=== PATIENT | female | born 1990 | race Caucasian/White ===

== ENCOUNTER 2021-01-22 12:31 | Emergency (ER) | payer OTHER, MEDICAID, SELFPAY ==
[2021-01-22 12:35] VITALS: BP 133/72; PULSE 82; RESP 20; TEMP 37; O2SAT 99
--- NOTE | 2021-01-22 12:35 | ED.HA ---
HPI - Headache General Chief Complaint: Headache Stated Complaint: migraine for 5 days Time Seen by Provider: 01/22/21 12:36 Source: patient and RN notes reviewed History of Present Illness HPI Narrative: Patient is a 31-year-old female who presents the urgent care with complaints of a 5-day history of a headache. Patient does have history of migraines and these are typical symptoms of her migraines however stating that this is lasting much longer than normal. Patient states that the pain is behind the eyes at wrapping to the back of the head. Patient states she has some photophobia as well as nausea and vomiting. Patient has tried her prescription Imitrex, Excedrin, ibuprofen with minimal intermittent relief. No other acute complaints. Denies of any recent head trauma. Denies of confusion or blurry vision. No acute distress noted. Patient aware of the plan of care. Some parts of this dictation were generated by voice recognition software and may contain typographical and/or grammatical inaccuracies. Related Data Home Medications Medication Instructions Recorded Confirmed sumatriptan succinate 100 mg PO DAILY PRN 01/22/21 01/22/21 Allergies Allergy/AdvReac Type Severity Reaction Status Date / Time No Known Allergies Allergy Unknown Verified 01/22/21 12:46 Review of Systems Review of Systems: Narrative: CONSTITUTIONAL: Denies fever, chills, or sweats. EYES: Denies visual changes, redness, or discharge. Reports of photophobia and sensitivity to light ENT: Denies rhinorrhea, congestion, sore throat, or otalgia. CARDIOVASCULAR: Denies chest pain, palpitations, or edema. RESPIRATORY: Denies cough or dyspnea. GASTROINTESTINAL: Denies abdominal pain, nausea, vomiting, or diarrhea. GENITOURINARY: Denies dysuria or hematuria. SKIN: Denies rash or itching. MUSCULOSKELETAL: Denies back pain, joint pain, or myalgia. NEUROLOGIC: Reports of migraine behind the eyes All other systems reviewed are negative, except as documented in HPI. PMFSH Comments At the time of my signature, I reviewed and agree with the nursing past medical, surgical, social, and family history. There is no relevant family history pertinent to the patient complaint. Exam Narrative: Exam Narrative: GENERAL: This is a well-nourished, well-developed patient, in no apparent distress. HEAD: normocephalic, atraumatic. EYES: PERRL. Sclera clear/white. Vision is grossly intact. EARS: External ears normal NOSE: External nose normal with no obvious nasal discharge, nares without redness, no rhinorrhea. THROAT: Mucous membranes moist NECK: Neck supple, non-tender without lymphadenopathy CARDIOVASCULAR: Regular rate and rhythm without murmurs, gallops, or rubs. RESPIRATORY: Clear to auscultation. Breath sounds equal bilaterally. No wheezes, rales, or rhonchi. SKIN: warm, intact with no suspicious lesions or rash, good texture and turgor. NEURO: awake, alert, and oriented to person, place and time. There were no obvious focal neurologic abnormalities. EXTREMITIES: No clubbing, cyanosis, or edema. Course Vital Signs Vital signs: Vital Signs Temperature 98.6 F 01/22/21 12:35 Pulse Rate 82 01/22/21 12:35 Respiratory Rate 20 01/22/21 12:35 Blood Pressure 133/72 01/22/21 12:35 Pulse Oximetry 99 01/22/21 12:35 Temperature 98.6 F 01/22/21 12:35 Pulse Rate 82 01/22/21 12:35 Respiratory Rate 20 01/22/21 12:35 Blood Pressure 133/72 01/22/21 12:35 Pulse Oximetry 99 01/22/21 12:35 Reviewed MDM - Headache MDM Narrative Medical decision making narrative: Advised the patient to use the Fioricet as needed. Make sure to follow directions stated on the prescription bottle. You may not take Fioricet in conjunction with other doses of Excedrin or Tylenol. Fioricet should also not be taken in conjunction with the Imitrex. Increase your water intake. Avoid any strenuous activities. Use Zofran as needed for nausea. If you develop any increa
[2021-01-22] MEDS: KETOROLAC (*BKC) 60 MG/2 ML VIAL IM (13:00)
[2021-01-22] MEDS: ONDANSETRON HCL ODT 4 MG TABLET PO (13:01)
[2021-01-22] MEDS: diphenhydrAMINE HCl CAP 25 MG CAPSULE PO (13:01)
== END 2021-01-22 13:30 | disposition home or self-care (01) ==
PROVIDERS: Emergency Provider Nurse Practitioner Family
DX: G43.909 Migraine, unspecified, not intractable, without status migrainosus (principal)
CPT/HCPCS: 96372; 99203; A9270; G0463; J1885

== ENCOUNTER 2021-05-23 08:10 | Emergency (ER) | payer OTHER, MEDICAID, SELFPAY ==
[2021-05-23 08:23] VITALS: BP 123/64; PULSE 75; RESP 16; TEMP 36.6; O2SAT 100
--- NOTE | 2021-05-23 08:40 | ED.SKABFB ---
HPI - Skin/Abscess/Foreign Bdy General Chief complaint: Skin/Abscess/Foreign Body Stated complaint: palms of hands and bottom feet itching Source: patient Mode of arrival: ambulatory Limitations: no limitations History of Present Illness HPI narrative: Patient is a 31-year-old female who presents complaining of pruritus to bilateral hands and feet. She denies use of new detergents, chemicals, soaps or lotions. She denies exposure to plant allergens. She reports signs and symptoms x4 days. She reports taking Benadryl overnight with limited relief. She reports using calamine lotion daily. She denies fever, cough, congestion and all other complaints at this time. Patient has no significant medical history. MD complaint: rash Related Data Allergies Allergy/AdvReac Type Severity Reaction Status Date / Time No Known Allergies Allergy Unknown Verified 05/23/21 08:29 Review of Systems Review of Systems: CONSTITUTIONAL: Denies fever, chills, or sweats. EYES: Denies visual changes, redness, or discharge. ENT: Denies rhinorrhea, congestion, sore throat, or otalgia. CARDIOVASCULAR: Denies chest pain, palpitations, or edema. RESPIRATORY: Denies cough or dyspnea. GASTROINTESTINAL: Denies abdominal pain, nausea, vomiting, or diarrhea. GENITOURINARY: Denies dysuria or hematuria. SKIN: Pruritus to bilateral hands and feet MUSCULOSKELETAL: Denies back pain, joint pain, or myalgia. NEUROLOGIC: Denies headache, numbness, dizziness, or weakness. PSYCHIATRIC: Denies anxiety or depression. PMFSH Past Medical History Medical History (Updated 05/23/21 @ 08:47 by ANTOINE Richardson) No significant past medical history Surgical History Surgical History (Updated 05/23/21 @ 08:42 by ANTOINE Richardson) No significant past surgical history Family History Family History (Updated 05/23/21 @ 08:42 by ANTOINE Richardson) Other No significant family history Social History Social History (Updated 05/23/21 @ 08:43 by ANTOINE Richardson) Smoking status: Current every day smoker Tobacco type: e-cigarettes/vaping Alcohol intake: current Alcohol use details: Occasional Substance use: never Living arrangements: with family Occupation/Education: occupation Exam Narrative: GENERAL: Well-appearing, well-nourished, and in no acute distress. HEAD: Normocephalic, atraumatic. EYES: EOMI. No redness or drainage. Conjunctiva are normal. ENT: Mucous membranes pink and moist. CHEST: No respiratory distress. HEART: Regular rate and rhythm. EXTREMITIES: Normal range of motion. No edema. SKIN: Warm, dry, no rash. Mild erythema without lesions of bilateral hands and feet, most likely from patient scratching. NEURO: No focal deficits. Alert and oriented x3. Gait steady. PSYCH: Normal affect. No signs of depression or anxiety. Course Vital Signs Vital signs: Vital Signs Temperature 36.6 C 05/23/21 08:23 Pulse Rate 75 05/23/21 08:23 Respiratory Rate 16 05/23/21 08:23 Blood Pressure 123/64 05/23/21 08:23 Pulse Oximetry 100 05/23/21 08:23 Temperature 36.6 C 05/23/21 08:23 Pulse Rate 75 05/23/21 08:23 Respiratory Rate 16 05/23/21 08:23 Blood Pressure 123/64 05/23/21 08:23 Pulse Oximetry 100 05/23/21 08:23 Reviewed MDM - Skin/Abscess/Foreign Bdy MDM Narrative Medical decision making narrative: Discussed with patient most likely contact dermatitis. Discussed using hydrocortisone cream and taking Atarax. Patient is aware of need to follow-up. Patient stable for discharge home with outpatient follow-up as discussed. Differential Diagnosis Differential diagnosis: Likely viral exanthem, urticaria, cellulitis, eczema and contact dermatitis Critical Care Time Critical Care Time Critical Care Time: No Discharge Plan Discharge Clinical Impression: Contact dermatitis Patient Disposition: Home, Self-Care Condition: Stable Instructions: Contact Dermatitis (DC) [place]
== END 2021-05-23 08:50 | disposition home or self-care (01) ==
PROVIDERS: Emergency Provider Nurse Practitioner
DX: L25.9 Unspecified contact dermatitis, unspecified cause (principal); F17.200 Nicotine dependence, unspecified, uncomplicated
CPT/HCPCS: 99213; G0463

== ENCOUNTER 2022-02-04 11:12 | Emergency (ER) | payer OTHER, SELFPAY ==
--- NOTE | 2022-02-04 11:15 | ED.URI ---
HPI - URI/Sore Throat General Chief Complaint: Upper Respiratory Infection Stated Complaint: Congestion/Sore Throat Time Seen by Provider: 02/04/22 11:16 Source: patient and RN notes reviewed History of Present Illness HPI Narrative: Patient is a 32-year-old female who presents the urgent care with complaints of sinus pressure, postnasal drainage and cough. Patient states that started 1 week ago and she was seen at [facility] on with a negative strep, COVID and flu swab. Patient denies of any nausea or vomiting. States that she has been taking DayQuil, NyQuil, Tylenol without much relief. Patient was not given prescriptions from [facility]. No other acute complaints. No acute distress noted. Patient aware of the plan of care. Some parts of this dictation were generated by voice recognition software and may contain typographical and/or grammatical inaccuracies. Related Data Allergies Allergy/AdvReac Type Severity Reaction Status Date / Time No Known Allergies Allergy Unknown Verified 02/04/22 11:31 Review of Systems Review of Systems: CONSTITUTIONAL: Denies fever, chills, or sweats. EYES: Denies visual changes, redness, or discharge. ENT: Reports of sinus congestion, rhinorrhea CARDIOVASCULAR: Denies chest pain, palpitations, or edema. RESPIRATORY: Reports of cough without dyspnea GASTROINTESTINAL: Denies abdominal pain, nausea, vomiting, or diarrhea. GENITOURINARY: Denies dysuria or hematuria. SKIN: Denies rash or itching. MUSCULOSKELETAL: Denies back pain, joint pain, or myalgia. NEUROLOGIC: Denies headache, numbness, or weakness. All other systems reviewed are negative, except as documented in HPI. [facility] Past Medical History Medical History (Updated 02/04/22 @ 11:42 by ANTOINE Brandt) No significant past medical history Surgical History Surgical History (Updated 05/23/21 @ 08:42 by Aurora Guerrier, ANTOINE) No significant past surgical history Family History Family History (Updated 05/23/21 @ 08:42 by Aurora Guerrier, BACKUP ADMINISTRATOR) Other No significant family history Social History Social History (Updated 05/23/21 @ 08:43 by Aurora Guerrier, BACKUP ADMINISTRATOR) Smoking status: Current every day smoker Tobacco type: e-cigarettes/vaping Alcohol intake: current Alcohol use details: Occasional Substance use: never Comments At the time of my signature, I reviewed and agree with the nursing past medical, surgical, social, and family history. There is no relevant family history pertinent to the patient complaint. Exam Narrative: GENERAL: This is a well-nourished, well-developed patient, in no apparent distress. HEAD: normocephalic, atraumatic. Frontal sinus pressure EYES: PERRL. Sclera clear/white. Vision is grossly intact. EARS: External ears normal, auditory canals clear and without drainage, TMs normal without perforation. Hearing grossly intact. NOSE: External nose normal with no obvious nasal discharge, nares without redness, no rhinorrhea. THROAT: Mucous membranes moist, posterior pharynx clear. Moderate postnasal drainage NECK: Neck supple CARDIOVASCULAR: Regular rate and rhythm without murmurs, gallops, or rubs. RESPIRATORY: Dry cough noted on exam. Clear to auscultation. Breath sounds equal bilaterally. No wheezes, rales, or rhonchi. SKIN: warm, intact with no suspicious lesions or rash, good texture and turgor. NEURO: awake, alert, and oriented to person, place and time. There were no obvious focal neurologic abnormalities. EXTREMITIES: No clubbing, cyanosis, or edema. Course Course Level of Care: Express Care Visit Vital Signs Vital signs: Vital Signs Temperature 98.3 F 02/04/22 11:20 Pulse Rate 87 02/04/22 11:20 Respiratory Rate 16 02/04/22 11:20 Blood Pressure 124/88 02/04/22 11:20 Pulse Oximetry 99 02/04/22 11:20 Temperature 98.3 F 02/04/22 11:20 Pulse Rate 87 02/04/22 11:20 Respiratory Rate 16 02/04/22 11
[2022-02-04 11:20] VITALS: BP 124/88; PULSE 87; RESP 16; TEMP 36.8; O2SAT 99
== END 2022-02-04 11:52 | disposition home or self-care (01) ==
PROVIDERS: Emergency Provider Nurse Practitioner Family
DX: J32.9 Chronic sinusitis, unspecified (principal); F17.290 Nicotine dependence, other tobacco product, uncomplicated
CPT/HCPCS: 99213; G0463

== ENCOUNTER 2022-12-17 18:13 | Emergency (ER) | payer OTHER, SELFPAY ==
[2022-12-17 18:18] VITALS: BP 118/75; PULSE 117; RESP 20; TEMP 37.4; O2SAT 98
--- NOTE | 2022-12-17 18:54 | ED.URI ---
HPI - URI/Sore Throat General Chief Complaint: Upper Respiratory Infection Stated Complaint: throat / achey Time Seen by Provider: 12/17/22 18:54 Source: patient, RN notes reviewed and old records reviewed Mode of arrival: ambulatory Limitations: no limitations History of Present Illness HPI Narrative: 32-year-old female who presents to [facility] Care with complaints of sore, throat swelling, enlarged tonsils which started about 0130 this morning.Patient reports that she has taken Ibuprofen and Vapocool cold and flu medications around 1600. Patient reports that she saw her doctor last week for cough and cold symptoms and was tested for flu and COVID which were negative, did seem to be getting better till last night. MD elicited complaint: fever (has felt febrile) and sore throat Onset (ago): day(s) (1) Pain scale (0-10): 7 Treatments prior to arrival: ibuprofen, cold medicine and other Related Data Home Medications Medication Instructions Recorded Confirmed gabapentin 300 mg capsule 300 mg PO DAILY 12/17/22 12/17/22 sumatriptan succinate 100 mg tablet 100 mg PO DIRECTED 12/17/22 12/17/22 Allergies Allergy/AdvReac Type Severity Reaction Status Date / Time No Known Allergies Allergy Unknown Verified 02/04/22 11:31 Review of Systems Review of Systems: CONSTITUTIONAL: Reports malaise, chills, sweats, or fever. EYES: Denies visual changes, redness, or discharge. ENT: Reports rhinorrhea, congestion, sinus pain,no otalgia positive for sore throat. CARDIOVASCULAR: Denies chest pain, palpitations, or edema. RESPIRATORY: Reports cough.? Denies dyspnea. GASTROINTESTINAL: Denies abdominal pain, nausea, vomiting, diarrhea SKIN: Denies rash or itching. MUSCULOSKELETAL: Denies myalgia. NEUROLOGIC: Denies headache. All systems reviewed & are unremarkable except as noted in HPI and below PMFSH Past Medical History Medical History Migraine No significant past medical history Surgical History Surgical History H/O tubal ligation No significant past surgical history Previous section x4 Family History Family History Other No significant family history Social History Social History Smoking status: Current every day smoker Tobacco type: e-cigarettes/vaping Alcohol intake: current Alcohol use details: Occasional Substance use: never Living arrangements: with family Occupation/Education: occupation Comments At time of signature, agree with nursing past medical, surgical, social and family history. There is no relevant family history pertinent to the presenting complaint Exam Narrative: GENERAL: Well-appearing, well-nourished, and in no acute distress. HEAD: Normocephalic EYES: PERRLA, conjunctivae clear ENT: Nares clear, turbinates edematous and erythematous, clear discharge. Mucous membranes moist. TM pearly hebert with dull light reflex bilaterally; no tragal tenderness. Oropharynx erythematous without lesions. Tonsils red enlarged especially right tonsil and without exudate, no drooling, no hoarseness, no trismus, uvula midline.painful swallowing NECK: Supple. lymphadenopathy CHEST: Clear to auscultation, breath sounds equal. No wheezing, rhonchi, rales, or stridor. No respiratory distress, speaks in full sentences.SAO2 98% on room air HEART: Regular rate and rhythm. No murmur heard. SKIN: Warm, dry, no rash. NEURO: Alert and oriented x3. PSYCH: Normal mood and affect Course Course Emergency Course: Patient is aware of diagnosis, understands and agrees to treatment plan.? Anticipatory guidance given.? Patient agrees to follow-up as directed and is aware of reasons to seek care at the emergency department. Portions of this record may have b
--- NOTE | 2022-12-17 18:54 | ED.URI ---
HPI - URI/Sore Throat General Chief Complaint: Upper Respiratory Infection Stated Complaint: throat / achey Time Seen by Provider: 12/17/22 18:54 Source: patient, RN notes reviewed and old records reviewed Mode of arrival: ambulatory Limitations: no limitations History of Present Illness HPI Narrative: 32-year-old female who presents to [facility] with complaints of sore throat since last with lymph nodes swollen in hr neck. Patient saw MD elicited complaint: cough and sore throat Related Data Home Medications Medication Instructions Recorded Confirmed gabapentin 300 mg capsule 300 mg PO DAILY 12/17/22 12/17/22 sumatriptan succinate 100 mg tablet 100 mg PO DIRECTED 12/17/22 12/17/22 Allergies Allergy/AdvReac Type Severity Reaction Status Date / Time No Known Allergies Allergy Unknown Verified 02/04/22 11:31 Review of Systems Review of Systems: CONSTITUTIONAL: Denies malaise, chills, sweats, or fever. EYES: Denies visual changes, redness, or discharge. ENT: Reports rhinorrhea, congestion, sinus pain, otalgia and sore throat. CARDIOVASCULAR: Denies chest pain, palpitations, or edema. RESPIRATORY: Reports cough.? Denies dyspnea. GASTROINTESTINAL: Denies abdominal pain, nausea, vomiting, diarrhea SKIN: Denies rash or itching. MUSCULOSKELETAL: Denies myalgia. NEUROLOGIC: Denies headache. All systems reviewed & are unremarkable except as noted in HPI and below PMFSH Past Medical History Medical History (Updated 12/17/22 @ 18:57 by Umm Olivera NP) No significant past medical history Surgical History Surgical History (Updated 05/23/21 @ 08:42 by Aurora Guerrier, ADVERTISING SALES MANAGER) No significant past surgical history Family History Family History (Updated 05/23/21 @ 08:42 by Aurora Guerrier, ADVERTISING SALES MANAGER) Other No significant family history Social History Social History (Updated 05/23/21 @ 08:43 by Aurora Guerrier, ADVERTISING SALES MANAGER) Smoking status: Current every day smoker Tobacco type: e-cigarettes/vaping Alcohol intake: current Alcohol use details: Occasional Substance use: never Living arrangements: with family Occupation/Education: occupation Comments At time of signature, agree with nursing past medical, surgical, social and family history. There is no relevant family history pertinent to the presenting complaint Exam Narrative: GENERAL: Well-appearing, well-nourished, and in no acute distress. HEAD: Normocephalic EYES: PERRLA, conjunctivae clear ENT: Nares clear, turbinates edematous and erythematous, clear discharge. Mucous membranes moist. TM pearly hebert with dull light reflex bilaterally; no tragal tenderness. Oropharynx erythematous without lesions. Tonsils not enlarged and without exudate, no drooling, no hoarseness, no trismus, uvula midline. NECK: Supple. No lymphadenopathy CHEST: Clear to auscultation, breath sounds equal. No wheezing, rhonchi, rales, or stridor. No respiratory distress, speaks in full sentences. HEART: Regular rate and rhythm. No murmur heard. SKIN: Warm, dry, no rash. NEURO: Alert and oriented x3. PSYCH: Normal mood and affect Course Course Emergency Course: Patient is aware of diagnosis, understands and agrees to treatment plan.? Anticipatory guidance given.? Patient agrees to follow-up as directed and is aware of reasons to seek care at the emergency department. Portions of this record may have been created with voice recognition software Level of Care: Express Care Visit Vital Signs Vital signs: Vital Signs Temperature 37.4 C 12/17/22 18:18 Pulse Rate 117 H 12/17/22 18:18 Respiratory Rate 20 12/17/22 18:18 Blood Pressure 118/75 12/17/22 18:18 Pulse Oximetry 98 12/17/22 18:18 Oxygen Delivery Room Air 12/17/22 18:18 Temperature 37.4 C 12/17/22 18:18 Pulse Rate 117 H 12/17/22 18:18 Respiratory Rate 20 12/17/22 18:18 Blood Pressure 118/75 12/17/22 18:18 Pulse Oximetry 98 12/17/22 1
== END 2022-12-17 19:13 | disposition home or self-care (01) ==
PROVIDERS: Emergency Provider Registered Nurse
DX: J02.0 Streptococcal pharyngitis (principal); F17.290 Nicotine dependence, other tobacco product, uncomplicated
CPT/HCPCS: 87880; 99213; G0463